=== PATIENT | female | born 1980 | race African-American/Black ===

== ENCOUNTER 2017-02-24 09:04 | Inpatient (IN) | payer MEDICAID ==
[2017-02-24] VITALS (23 sets, daily range): BP systolic 118–168; BP diastolic 55–99
[~2017-02-24] VITALS: Ht 162.6 cm; Wt 86.2 kg
[2017-02-24] MEDS ORDERED: LACTATED RINGERS 1,000 ML IV SCH (09:30)
[2017-02-24 10:02] LABS: UCG SCREEN NEGATIVE
[2017-02-24 10:09] LABS: BASOPHILS % 0.5 % (0.0-2.0); EOSINOPHILS % 1.4 % (0.0-5.0); HEMATOCRIT. 29.7 % (36.0-48.0); HEMOGLOBIN. 9.6 g/dL (12.0-16.0); LYMPHOCYTES % 29.3 % (20.0-50.0); MEAN CORPUSCULAR HEMOGLOBIN 25.4 pg (28.0-32.0); MEAN CORPUSCULAR VOLUME 78.9 fL (81.0-99.0); MEAN PLATELET VOLUME 8.1 fl (7.4-10.4); MONOCYTES % 4.7 % (2.0-8.0); NEUTROPHILS % 64.1 % (40.0-76.0); PLATELET 380 x1000/uL (130-400); RED BLOOD CELL COUNT 3.76 mill/uL (4.2-5.4); RED CELL DISTRIBUTION WIDTH 16.3 % (11.6-14.6)
[2017-02-24] MEDS ORDERED: FERR-63 PO (10:13)
[2017-02-24] MEDS ORDERED: TRAM50TA3 PO (10:13)
[2017-02-24] MEDS ORDERED: IBUP-1509 PO (10:13)
[2017-02-24] MEDS ORDERED: MIDAZOLAM HCL 2 MG/2 ML VIAL ONE (11:23)
[2017-02-24] MEDS ORDERED: NORMAL SALINE 0.9% 10 ML SYR ONE (11:47)
[2017-02-24] MEDS ORDERED: GELATIN SPONGE,ABSORBABLE SZ 100 ONE (11:47)
[2017-02-24] MEDS ORDERED: THROMBIN (BOVINE) 5000 UNITS/VIAL TOP ONE (11:48)
[2017-02-24] MEDS ORDERED: LIDOCAINE HCL/EPINEPHRINE 0.5%-EPI 1:200,000 50 ML VIAL INFIL ONE (11:48)
[2017-02-24] MEDS ORDERED: BACITRACIN 50,000 UNITS/VIAL ONE (11:48)
[2017-02-24] MEDS ORDERED: PROPOFOL 200MG/20ML VIAL IV ONE (12:25)
[2017-02-24] MEDS ORDERED: ROCURONIUM BROMIDE 10MG/ML VIAL 5ML IV ONE ×2 (12:26→12:27)
[2017-02-24] MEDS ORDERED: CEFAZOLIN SODIUM 1000MG/VIAL ONE (12:26)
[2017-02-24] MEDS ORDERED: SODIUM CHLORIDE 0.9% 10ML VIAL ONE (12:26)
[2017-02-24] MEDS ORDERED: FENTANYL CITRATE/PF 50MCG/ML 5ML VIAL ONE (13:41)
[2017-02-24] MEDS ORDERED: HYDROMORPHONE HCL/PF 2MG/ML (OR) ONE (14:12)
[2017-02-24] MEDS ORDERED: GLYCOPYRROLATE 0.2 MG/ML 2ML VIAL ONE (14:59)
[2017-02-24] MEDS ORDERED: NEOSTIGMINE METHYLSULFATE 1MG/ML 10 ML VIAL ONE (14:59)
[2017-02-24] MEDS ORDERED: IPRATROPIUM/ALBUTEROL 0.5-3(2.5)MG/3ML NEB INH PRN (16:00)
[2017-02-24] MEDS ORDERED: ONDANSETRON HCL 4MG/2ML VIAL IV PRN (16:00)
[2017-02-24] MEDS ORDERED: ACETAMINOPHEN 325MG TABLET PO PRN (16:00)
[2017-02-24] MEDS ORDERED: DIPHENHYDRAMINE 50MG/ML VIAL IV PRN (16:00)
[2017-02-24] MEDS ORDERED: NALOXONE INJ IV PRN (16:45)
[2017-02-24] MEDS ORDERED: DIPHENHYDRAMINE INJ IV PRN (16:45)
[2017-02-24] MEDS: HYDROMORPHONE PCA 10MG/50ML IV PRN (16:47)
[2017-02-24] MEDS: DEXT 5%/LACTATED RINGERS 1,000 ML IV SCH (16:47)
[2017-02-24] MEDS ORDERED: NICARDIPINE 100 MG in SODIUM CHLORIDE 0.9% 60 ML IV PRN (17:00)
[2017-02-24] MEDS: CEFAZOLIN 1000MG PREMIX 50 ML IV SCH (19:40)
[2017-02-24] MEDS: CLONIDINE 0.1MG TABLET PO PRN (19:40)
[2017-02-24] MEDS: ONDANSETRON INJ IV PRN (21:16)
[2017-02-24] MEDS ORDERED: CEFAZOLIN SODIUM 1000MG/VIAL IV SCH (22:00)
[2017-02-25] VITALS (35 sets, daily range): BP systolic 90–157; BP diastolic 48–111
[2017-02-25] MEDS: CLONIDINE 0.1MG TABLET PO PRN ×2 (02:04→08:10)
[2017-02-25] MEDS: MORPHINE SULFATE 2 MG/ML CPJ (NOT FOR IM USE) IV PRN ×2 (02:11→06:42)
[2017-02-25] MEDS: CEFAZOLIN 1000MG PREMIX 50 ML IV SCH ×2 (03:20→12:10)
[2017-02-25] MEDS: DEXT 5%/LACTATED RINGERS 1,000 ML IV SCH ×2 (05:59→21:33)
[2017-02-25] MEDS: HYDROCODONE/ACETAMINOPHEN 10/325MG TABLET PO PRN ×2 (08:10→15:02)
[2017-02-25] MEDS: HYDROMORPHONE PCA 10MG/50ML IV PRN (08:30)
[2017-02-25] MEDS: ONDANSETRON INJ IV PRN (14:07)
[2017-02-25] MEDS: LISINOPRIL 20MG TABLET PO SCH (15:01)
[2017-02-25] MEDS: HYDROMORPHONE HCL/PF 2MG/ML CPJ IV PRN ×2 (17:22→21:38)
[2017-02-25] MEDS: DEXAMETHASONE 4MG/ML 1ML VIAL IV SCH (18:00)
[2017-02-26] VITALS: BP 121/86
[2017-02-26] MEDS: DEXAMETHASONE 4MG/ML 1ML VIAL IV SCH ×5 (01:50→23:51)
[2017-02-26] MEDS: HYDROMORPHONE HCL/PF 2MG/ML CPJ IV PRN ×5 (01:55→22:29)
[2017-02-26 04:00] VITALS: BP 136/101
[2017-02-26 06:40] LABS: HEMATOCRIT. 28.1 % (36.0-48.0); HEMOGLOBIN. 9.2 g/dL (12.0-16.0); MEAN CORPUSCULAR HEMOGLOBIN 25.4 pg (28.0-32.0); MEAN PLATELET VOLUME 8.4 fl (7.4-10.4); PLATELET 360 x1000/uL (130-400); RED BLOOD CELL COUNT 3.61 mill/uL (4.2-5.4); RED CELL DISTRIBUTION WIDTH 15.9 % (11.6-14.6)
[2017-02-26 07:11] LABS: CARBON DIOXIDE 29 mEq/L (21-32); CHLORIDE 102 mEq/L (98-107)
[2017-02-26 08:00] VITALS: BP 129/84
[2017-02-26] MEDS: LISINOPRIL 20MG TABLET PO SCH (08:49)
[2017-02-26 12:02] VITALS: BP 144/86
[2017-02-26 12:06] LABS: TOTAL IRON BINDING CAPACITY 312 ug/dL (250-450)
[2017-02-26 14:30] LABS: PLATELET ESTIMATE NORMAL
[2017-02-26] MEDS: DEXT 5%/LACTATED RINGERS 1,000 ML IV SCH (15:36)
[2017-02-26 16:09] VITALS: BP 138/91
[2017-02-26 19:43] LABS: FERRITIN 31 ng/mL (10-291)
[2017-02-26 19:51] LABS: VITAMIN B12 SERUM 803 pg/mL (211-911)
[2017-02-26 20:00] VITALS: BP 146/92
[2017-02-27] VITALS: BP 122/78
[2017-02-27 04:00] VITALS: BP 122/88
[2017-02-27] MEDS: HYDROMORPHONE HCL/PF 2MG/ML CPJ IV PRN ×3 (04:40→21:26)
[2017-02-27] MEDS: DEXT 5%/LACTATED RINGERS 1,000 ML IV SCH ×2 (04:59→15:45)
[2017-02-27] MEDS: DEXAMETHASONE 4MG/ML 1ML VIAL IV SCH ×3 (05:29→19:12)
[2017-02-27 07:35] LABS: BASOPHILS % 0.1 % (0.0-2.0); HEMATOCRIT. 26.9 % (36.0-48.0); HEMOGLOBIN. 8.7 g/dL (12.0-16.0); LYMPHOCYTES % 11.6 % (20.0-50.0); MEAN CORPUSCULAR HEMOGLOBIN 25.2 pg (28.0-32.0); MEAN CORPUSCULAR VOLUME 78.5 fL (81.0-99.0); MEAN PLATELET VOLUME 8.9 fl (7.4-10.4); MONOCYTES % 3.1 % (2.0-8.0); NEUTROPHILS % 85.2 % (40.0-76.0); PLATELET 342 x1000/uL (130-400); RED BLOOD CELL COUNT 3.43 mill/uL (4.2-5.4); RED CELL DISTRIBUTION WIDTH 16.1 % (11.6-14.6)
[2017-02-27 07:55] LABS: CARBON DIOXIDE 29 mEq/L (21-32); CHLORIDE 104 mEq/L (98-107)
[2017-02-27 08:00] VITALS: BP 148/91
[2017-02-27] MEDS: LISINOPRIL 20MG TABLET PO SCH (08:47)
[2017-02-27] MEDS: HYDROCODONE/ACETAMINOPHEN 10/325MG TABLET PO PRN (09:41)
[2017-02-27 12:00] VITALS: BP 151/91
[2017-02-27 16:00] VITALS: BP 160/100
[2017-02-27] MEDS: CLONIDINE 0.1MG TABLET PO PRN (17:37)
[2017-02-27 20:00] VITALS: BP 143/93
[2017-02-28] VITALS: BP 139/86
[2017-02-28] MEDS: HYDROMORPHONE HCL/PF 2MG/ML CPJ IV PRN ×5 (01:41→20:41)
[2017-02-28] MEDS: DEXAMETHASONE 4MG/ML 1ML VIAL IV SCH ×4 (01:52→18:31)
[2017-02-28 04:00] VITALS: BP 141/89
[2017-02-28] MEDS: DEXT 5%/LACTATED RINGERS 1,000 ML IV SCH (06:24)
[2017-02-28 07:51] LABS: BASOPHILS % 0.2 % (0.0-2.0); HEMATOCRIT. 28.4 % (36.0-48.0); HEMOGLOBIN. 9.1 g/dL (12.0-16.0); MEAN CORPUSCULAR HEMOGLOBIN 25.3 pg (28.0-32.0); MEAN CORPUSCULAR VOLUME 79.1 fL (81.0-99.0); MEAN PLATELET VOLUME 9.5 fl (7.4-10.4); MONOCYTES % 3.5 % (2.0-8.0); NEUTROPHILS % 82.3 % (40.0-76.0); PLATELET 356 x1000/uL (130-400); RED BLOOD CELL COUNT 3.59 mill/uL (4.2-5.4); RED CELL DISTRIBUTION WIDTH 16.6 % (11.6-14.6)
[2017-02-28 08:00] VITALS: BP 153/104
[2017-02-28 08:14] LABS: CARBON DIOXIDE 27 mEq/L (21-32); CHLORIDE 103 mEq/L (98-107)
[2017-02-28] MEDS: LISINOPRIL 20MG TABLET PO SCH (08:22)
[2017-02-28] MEDS ORDERED: SENNOSIDES 8.6MG TABLET PO PRN (10:30)
[2017-02-28 12:00] VITALS: BP 158/99
[2017-02-28] MEDS: METOPROLOL TARTRATE 25MG TABLET PO SCH ×2 (12:56→20:38)
[2017-02-28 20:00] VITALS: BP 177/96
[2017-03-01] VITALS (7 sets, daily range): BP systolic 139–161; BP diastolic 88–101
[2017-03-01] MEDS: DEXT 5%/LACTATED RINGERS 1,000 ML IV SCH ×2 (00:18→10:16)
[2017-03-01] MEDS: DEXAMETHASONE 4MG/ML 1ML VIAL IV SCH ×4 (00:18→18:31)
[2017-03-01] MEDS: HYDROMORPHONE HCL/PF 2MG/ML CPJ IV PRN ×3 (06:20→18:34)
[2017-03-01] MEDS: LISINOPRIL 20MG TABLET PO SCH (08:40)
[2017-03-01] MEDS: METOPROLOL TARTRATE 25MG TABLET PO SCH ×2 (08:40→21:35)
[2017-03-01] MEDS: HYDROCODONE/ACETAMINOPHEN 10/325MG TABLET PO PRN (10:15)
[2017-03-01] MEDS: CLONIDINE 0.1MG TABLET PO PRN (13:39)
== END 2017-03-01 21:50 | DRG 321 ==
LOC: OR 09:04 → MICUSO 09:05 → 6EST 02-25 15:49
PROVIDERS: ADMIT Internal Medicine; ATTEND Internal Medicine
PROC: 0RT30ZZ Resection of Cervical Vertebral Disc, Open Approach (ICD-10-PCS; 2017-02-24)
PROC: 0RG10K0 Fusion of Cervical Vertebral Joint with Nonautologous Tissue Substitute, Anterior Approach, Anterior Column, Open Approach (ICD-10-PCS; principal; 2017-02-24 15:00)
DX: M50.021 Cervical disc disorder at C4-C5 level with myelopathy (principal); G82.50 Quadriplegia, unspecified; E66.9 Obesity, unspecified; M54.12 Radiculopathy, cervical region; D50.9 Iron deficiency anemia, unspecified; I10 Essential (primary) hypertension; R00.0 Tachycardia, unspecified; D72.829 Elevated white blood cell count, unspecified; M43.12 Spondylolisthesis, cervical region; G89.29 Other chronic pain; Z68.32 Body mass index [BMI] 32.0-32.9, adult
CPT/HCPCS: 36415; 72040; 72141; 80048; 80053; 81025; 82607; 82728; 83540; 83550; 85025; 85044; 86850; 86900; 88304; 88311; 92610; 97116; 97163; 97166; 97530; 97535; A4216; C1893; J0690; J1100; J1170; J1200; J2250; J2270; J2405; J2704; J2710; J3010; J3490; J7050; J7120; J7121